=== PATIENT | female | born 1960 | race Caucasian/White ===

== ENCOUNTER → 2024-11-22 | Day surgery (SDC) | payer MEDICARE ==
[2024-11-19 10:06] LABS: BASOPHILS % 0.1 % (0.0-1.0); EOSINOPHILS # (AUTO) 0.1 (0.0-0.4); HEMATOCRIT 32.4 % (34.2-44.1); HEMOGLOBIN 11.2 g/dL (12.0-16.0); LYMPHOCYTES # (AUTO) 1.3 (1.0-3.2); LYMPHOCYTES % 18.4 % (18.0-39.1); MEAN CORPUSCULAR HEMOGLOBIN 30.9 pg (28-32); MEAN CORPUSCULAR HGB CONC 34.6 g/dL (31-35); MEAN CORPUSCULAR VOLUME 89.5 fL (81-99); MONOCYTES # (AUTO) 0.4 (0.2-0.8); MONOCYTES % 5.6 % (4.4-11.3); NEUTROPHILS % 74.3 % (38.7-80.0); PLATELET COUNT 147 x10e3/uL (140-360); RED BLOOD COUNT 3.62 x10e6/uL (3.6-5.1); WHITE BLOOD COUNT 6.78 x10e3/uL (4.8-10.8)
[~2024-11-22] MED LIST: ACETAMINOPHEN 1000 MG/100 ML 100 ML IV ONE; ACETAMINOPHEN 1000 MG/100 ML IV PRN; ASPIRIN 325 MG TAB PO SCH; CELECOXIB 100 MG CAP PO SCH; DIPHENHYDRAMINE HCL INJ 50 MG/ML VIAL IV PRN; DOCUSATE SODIUM 100 MG CAP PO PRN; FAMOTIDINE 20 MG/2 ML VIAL IV ONE; FENTANYL CITRATE/PF 100MCG/2 ML INJ ONE; HYDROCHLOROTHIA25 MG; HYDROCODONE/APAP 5MG-325MG TAB PO PRN; HYDROCODONE/APAP 7.5MG-325MG 1 EA TAB PO PRN; IRON; LACTATED RINGER'S 1,000 ML ONE; LIDOCAINE HCL 2% LOCAL INJ 5 ML SDV VIAL INJ ONE; LISINOPRIL10 MG PO; LYRICA150 MG PO; MIDAZOLAM HCL 2 MG/2 ML VIAL ONE; MOXIFLOXACIN HCL(OPTH) 3 ML BTL ONE; MULTI-VITAMIN1 EACH PO; ONDANSETRON HCL INJ 2MG/ML 2ML 2 MG/ML VIAL IV PRN; ONDANSETRON HCL INJ 2MG/ML 2ML 2 MG/ML VIAL ONE; PROPOFOL IV EMULSION 10 MG/ML 20 ML VIAL ONE; ROPINIROLE HCL1 MG PO; ROPIVACAINE/EPI/CLONIDINE/KET 50 ML SYRINGE INJ ONE; SEVOFLURANE INHAL SOLN 250 ML PEN BTL ONE; SODIUM CHLORIDE 0.9% 1000ML 1,000 ML IV SCH
[2024-11-22] MEDS: LACTATED RINGER'S 1,000 ML ONE (08:29)
[2024-11-22] MEDS: DEXAMETHASONE SOD PHOS 10 MG/1 ML VIAL ONE (08:29)
[2024-11-22] MEDS: GABAPENTIN 300 MG CAP ONE (08:30)
[2024-11-22] MEDS: CELECOXIB 200 MG CAP ONE (08:30)
[2024-11-22] MEDS: CEFAZOLIN SODIUM 2 GM ONE (08:30)
[2024-11-22 09:17] LABS: CALCIUM 9.2 mg/dL (8.4-10.2); CREATININE, SERUM 1.18 mg/dL (0.57-1.11)
[2024-11-22 13:30] VITALS: BP 136/80; PULSE 81; RESP 18; O2SAT 97
== END | disposition home or self-care (01) ==
LOC: OR 08:07
PROVIDERS: ATTEND Specialist
DX: M17.12 Unilateral primary osteoarthritis, left knee (principal); I10 Essential (primary) hypertension; G89.29 Other chronic pain; E66.01 Morbid (severe) obesity due to excess calories; D64.9 Anemia, unspecified; G25.81 Restless legs syndrome; Z88.0 Allergy status to penicillin; Z68.34 Body mass index [BMI] 34.0-34.9, adult
CPT/HCPCS: 27447; 36415; 73560; 80048; 85025; 86850; 86900; 97110; 97116; 97161; C1713 ×2; C1776 ×3; J0131; J1100; J1308; J2003; J2250; J2405; J2704; J3010; J7121